=== PATIENT | female | born 1980 | race Caucasian/White ===

== ENCOUNTER 2017-04-10 23:03 | Emergency (ER) | payer BC, OTHER ==
[~2017-04-10] VITALS: Ht 154.9 cm; Wt 72.6 kg
[2017-04-10 23:06] VITALS: BP 136/62
[2017-04-11] MEDS ORDERED: traMADol 50 MG TAB PO ONE (01:30)
[2017-04-11 02:03] VITALS: BP 132/71
== END 2017-04-11 02:03 | disposition home or self-care (01) ==
LOC: MED 23:03
DX: K59.00 Constipation, unspecified (principal); M54.5 Low back pain; R03.0 Elevated blood-pressure reading, without diagnosis of hypertension; J44.9 Chronic obstructive pulmonary disease, unspecified
CPT/HCPCS: 74000; 81002; 81025; 99283